=== PATIENT | female | born 1945 | race Caucasian/White ===

== ENCOUNTER → 2018-11-23 | Outpatient (CLI) | payer MEDICARE, OTHER ==
--- NOTE | 2018-11-23 15:26 | REP ---
Low-dose lung screening CT: Comparison is a chest CT dated 12/23/2016, outside study. The study is performed without IV contrast. Images are presented at lung windowing only. There are no nodules or masses. There are no infiltrates or pleural effusions. There are numerous bulla throughout the lung díaz bilaterally accompanied by fibrosis. This is unchanged. There is bronchiectasis, unchanged. There is bilateral apical pleuroparenchymal scarring, unchanged. Impression: Category one low-dose lung screening CT of the chest. The probability of malignancy is less than 1%. Depending on risk factors consider follow-up annual low-dose lung screening CT. There are chronic findings of bilateral apical pleuroparenchymal scarring, numerous bulla, fibrotic changes and bronchiectasis, all unchanged. Electronically Signed by Finn Giles MD 11/23/2018 03:18 P
== END ==
LOC: M RAD 14:09
PROVIDERS: ATTEND Internal Medicine Pulmonary Disease
DX: Z12.2 Encounter for screening for malignant neoplasm of respiratory organs (principal); Z87.891 Personal history of nicotine dependence; J43.9 Emphysema, unspecified; J47.9 Bronchiectasis, uncomplicated; J84.10 Pulmonary fibrosis, unspecified

== ENCOUNTER → 2020-07-30 | Outpatient (CLI) | payer MEDICARE ==
--- NOTE | 2020-07-30 12:46 | REP ---
INDICATION: NICOTINE DEPENDENCE, UNSPECIFIED, UNCOMPLICATED. COMPARISON: 11/23/2018 a low-dose screening CT exam and 12/23/[address] scan. TECHNIQUE: Axial noncontrast images from the thoracic inlet to the upper abdomen using low-dose lung screening technique (LDCT). As per the protocol only lung window images were sent to the read station for interpretation. FINDINGS: There is stable appearing biapical pleuroparenchymal scarring. There are stable appearing scattered asymmetric parenchymal densities. 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 There is cylindrical bronchiectasis which appears stable. No definite new abnormal nodules, masses, or opacities have developed. Grossly, the mediastinum and pulmonary filipe are unchanged. Grossly, the imaged upper abdomen and imaged osseous structures are unchanged. IMPRESSION: Lung rads category 2s, stable appearing low-dose screening CT examination of the lungs. <Electronically signed by Keanu Landon > 07/30/20 [id number]
== END ==
LOC: M RAD 11:45
PROVIDERS: ATTEND Internal Medicine Pulmonary Disease
DX: Z12.2 Encounter for screening for malignant neoplasm of respiratory organs (principal); Z87.891 Personal history of nicotine dependence